=== PATIENT | male | born 1990 ===

== ENCOUNTER 2019-12-20 08:55 | Day surgery (SDC) | payer OTHER ==
[~2019-12-20] VITALS: Ht 180.3 cm; Wt 78.4 kg
[~2019-12-20 08:55] MED LIST: FAMO20 PO; I PRIN PO; IBUP200; Imitrex100 MG PO; LOPE2C PO; Metoprolol Tart50 MG PO; OMEP20ER PO; ONDA4 PO; PROP60; Pepcid20 MG PO; RANI150 PO; SUMA25; TOPI25 PO; Zofran8 MG PO
--- NOTE | 2019-12-20 09:52 | NUR ---
Ambulatory in Day Surgery History, Chart, Medications and Allergies reviewed before start of procedure.Lungs clear T/O to Auscultation. Patient confirms NPO status and agrees with scheduled surgery. Patient States Post-Procedure ride home has been arranged.
--- NOTE | 2019-12-20 11:13 | NUR ---
12/20/19 1113 Yolanda Sanon History, Chart, Medications and Allergies reviewed before start of procedure. PATIENT CONFIRMS NPO STATUS AND AGREES WITH SCHEDULED PROCEDURE. MONITOR INTACT WITH CONTINUOUS PULSE OXIMETRY AND INTERMITTENT BP.O2 VIA N/C INTACT THROUGHOUT SEDATION/PROCEDURE. 3-LEAD EKG REVIEWED WITH PHYSICIAN PRIOR TO START OF PROCEDURE. HURRICAINE SPRAY TO OROPHARYX. Bite Block Placed. PATIENT DETERMINED TO BE ASA APPROPRIATE FOR PROPOFOL SEDATION PRIOR TO START OF PROCEDURE BY DR. WEINSTEIN
== END 2019-12-20 12:08 | disposition home or self-care (01) ==
LOC: ORSCMMR 08:55 → ORD 10:00 → ORSCMMR 12:08
PROVIDERS: Internal Medicine Gastroenterology
PROC: 0DB58ZX Excision of Esophagus, Via Natural or Artificial Opening Endoscopic, Diagnostic (ICD-10-PCS; principal; 2019-12-20 10:00)
PROC: 0D758ZZ Dilation of Esophagus, Via Natural or Artificial Opening Endoscopic (ICD-10-PCS; principal; 2019-12-20 10:00)
DX: R13.14 Dysphagia, pharyngoesophageal phase (principal); K20.0 Eosinophilic esophagitis; Z79.899 Other long term (current) drug therapy
CPT/HCPCS: 88305; 88342; C1726; J2704; J7120

== ENCOUNTER → 2022-02-09 | Outpatient (CLI) | payer OTHER | END | disposition home or self-care (01) | LOC: LAB SHORT 16:45 | DX: R30.0 Dysuria (principal) | CPT/HCPCS: 87086 ==